=== PATIENT | male | born 1955 | race Caucasian/White ===

== ENCOUNTER 2020-03-18 22:27 | Emergency (ER) | payer MEDICAID, MEDICARE ==
[2020-03-19] MEDS ORDERED: Acetaminophen 325 MG Tab PO ONE (02:47)
--- NOTE | 2020-03-19 02:51 | EDM.PDOC ---
ED HPI GENERAL MEDICAL PROBLEM - General Chief Complaint: Lower Extremity Injury/Pain Stated Complaint: FOOT INJURY Time Seen by Provider: 03/19/20 02:25 Source of Information: Reports: Patient History Limitations: Reports: No Limitations - History of Present Illness INITIAL COMMENTS - FREE TEXT/NARRATIVE: Mr. Smith is a 65-year-old gentleman who now presents to the ED after injuring his left ankle. He states that he rolled his left foot inward around 15:00 yesterday, when getting off of a horse. He states that he fell down as a result, but was not otherwise injured. He states that he took some oxycodone, which initially helped, however, but as time went on, pain in his ankle increased. Here in the ED, the patient's initial BP is found to be modestly elevated at 15 5/87, otherwise, he is hemodynamically stable, afebrile, saturating 98% on room air. Other than his left ankle injury, the patient denies having a recent fever, chills, sore throat, ear pain, nasal or sinus congestion, cough, dyspnea, chest pain, palpitations, nausea, vomiting, constipation, diarrhea, abdominal pain, urinary symptoms, recent weight gain or weight loss, recent bloody bowel movemen ts or black bowel movements, recent joint aches, headaches, or rashes. The patient is visiting this area from [place], [place]. Left Ankle Pain Score (Numeric/FACES): 3 - Related Data Allergies Allergy/AdvReac Type Severity Reaction Status Date / Time No Known Allergies Allergy Verified 03/18/20 22:38 Past Medical History Cardiovascular History: Reports: Afib (paroxysmal), CAD, Hypertension Gastrointestinal History: Reports: GERD Genitourinary History: Reports: BPH Musculoskeletal History: Reports: Fracture (left leg, spine in 3 places, 7 ribs), Osteoarthritis Neurological History: Reports: Brain Injury Psychiatric History: Reports: Anxiety, Depression - Past Surgical History Cardiovascular Surgical History: Reports: Coronary Artery Stent (x 2), Other (See Below) (Coronary angiogram x 2) Musculoskeletal Surgical History: Reports: Knee Replacement (bilateral), ORIF (left tib/fib) Social & Family History - Tobacco Use Smoking Status *Q: Former Smoker Years of Tobacco use: 13 Packs/Tins Daily: 1 Month/Year Tobacco Last Used: Quit 1979 Second Hand Smoke Exposure: No - Caffeine Use Caffeine Use: Reports: Coffee - Alcohol Use Alcohol Use History: Yes Alcohol Use Frequency: Rarely - Recreational Drug Use Recreational Drug Use: No - Living Situation & Occupation Living situation: Reports: , Alone Occupation: Retired Review of Systems - Review of Systems Review Of Systems: Comprehensive ROS is negative, except as noted in HPI. ED EXAM, GENERAL - Physical Exam Exam: See Below Exam Limited By: No Limitations General Appearance: Alert, WD/WN, No Apparent Distress Extremities: Other (No visible abnormality to the left ankle or foot, such as swelling, erythema, ecchymosis, or abrasion, and the foot is not unusually angled or displaced. There is tenderness to palpation around the lateral malleolus, but no significant tenderness to the medial malleolus, or anterior or posterior syndesmosis. No tenderness to palpation of the foot itself. There is a well-healed scar noted over the mid tibia. Neurovascular status of the left lower extremity is intact.) Course - Vital Signs Last Recorded V/S: Last Vital Signs Temp 36.2 C 03/18/20 22:35 Pulse 83 03/18/20 22:35 Resp 18 03/18/20 22:35 BP 155/87 H 03/18/20 22:35 Pulse Ox 98 03/18/20 22:35 - Orders/Labs/Meds Orders: Active Orders 24 hr Category Date Time Status Ankle Min 3V Lt [CR] Stat Exams 03/18/20 22:32 Taken Foot Comp Min 3V Lt [CR] Stat Exams 03/18/20 22:32 Taken DME for Discharge [COMM] Stat Oth 03/19/20 02:47 Ordered Meds: Medications Discontinued Medications Generic Name Dose Route Start Last Admin Trade Name Rei PRN Reason Stop Dose Admin Acetaminophen 650 mg 03/19/20 02:47 Tylenol PO 03/19/20 02:48 NOW ONE - Re-Assessments/Exams Free Text/Narrative Re-Assessment/Exam: 03/19/20 02:45 As above, the patient rolled his left foot inward around 15:00 yesterday af ternoon, suffering a lateral left ankle injury. On exam, he has minimal swelling, but some tenderness to the lateral aspect of his ankle. The ankle itself is stable. 4-view radiographs of the left ankle appear to demonstrate significant osteopenia. There is a well-healed mid-tibial fracture and a well-healed distal fibular fracture, but no acute fracture or dislocation seen. Degenerative join t disease noted at the ankle. Formal read per the Radiologist pending. 4-view radiographs of the left foot again appear to demonstrate significant osteopenia. No fractures or dislocations identified. Degenerative joint disease of the foot, and an unusually high arch noted. Formal read per the Radiologist pending. The patient appears to have a relatively mild left ankle sprain. I would like him to ice and elevate his left ankle as much as possible over the next 2 or 3 days, to help minimize swelling. Because he is on Coumadin, I am advising that he not take ibuprofen, and have therefore recommended that he take Tylenol as needed for discomfort. He will be fitted with a stirrup splint, which I would like him to apply each morning and remove at bedtime for the next week. After that, he should begin ambulating on his own, with some expected discomfort, however, if he continues to have significant discomfort after 2 weeks, he should follow-up with his Orthopedic Surgeon. The patient expressed understanding. Departure - Departure Time of Disposition: 02:51 Disposition: Home, Self-Care 01 Condition: Good Clinical Impression: Left ankle sprain - Discharge Information *PRESCRIPTION DRUG MONITORING PROGRAM REVIEWED*: Not Applicable *COPY OF PRESCRIPTION DRUG MONITORING REPORT IN PATIENT VIVIANA: Not Applicable Instructions: Ankle Sprain Referrals: PCP,Not In Area [Primary Care Provider] - Forms: ED Department Discharge Additional Instructions: You were seen in the emergency room after rolling your left foot inward, injuring your left ankle. Work-up in the ER included x-rays of your ankle and foot, which demonstrate old healed mid tibia fracture and distal fibula fracture, along with generally thin bones and arthritis, however, no new fractures or dislocations were seen. Based on your history, physical exam, and ER x-rays, you have most likely sprained your left ankle. We recommend that you ice and elevate your left ankle as much as possible over the next 2 to 3 days, to help minimize swelling. We recommend that you take [id number] Tylenol as needed for discomfort. Because you are on Coumadin, we advise against you are taking ibuprofen (Advil, Motrin) or naproxen (Aleve). You have been fitted with a stirrup splint. Apply this each morning and remove at bedtime. After 1 week, you should remove the splint and begin ambulating without it. You should expect to still have some discomfort at that time, however, if you are still having significant discomfort after 2 weeks, we recommend that you follow-up with your Orthopedic Surgeon for reevaluation. If any other problems, please do not hesitate to return to the ER. Sepsis Event Note (ED) - Evaluation Sepsis Screening Result: No Definite Risk - Focused Exam Vital Signs: Vital Signs Temp Pulse Resp BP Pulse Ox 03/18/20 22:35 36.2 C 83 18 155/87 H 98 - My Orders Last 24 Hours: My Active Orders 03/18/20 22:32 Ankle Min 3V Lt [CR] Stat Foot Comp Min 3V Lt [CR] Stat 03/19/20 02:47 DME for Discharge [COMM] Stat - Assessment/Plan Last 24 Hours: My Active Orders 03/18/20 22:32 Ankle Min 3V Lt [CR] Stat Foot Comp Min 3V Lt [CR] Stat 03/19/20 02:47 DME for Discharge [COMM] Stat
--- NOTE | 2020-03-19 06:22 | CR ---
Left ankle: 4 views of the left ankle were obtained. Comparison: No previous studies available. Old healed fractures are noted at the junction of the distal and mid one third diaphysis of the tibia and fibula. Additional healed fracture within the more distal fibular diaphysis is seen. Osteopenia is noted. Tibiotalar joint shows narrowing along the lateral side. No acute fracture, dislocation or other bony abnormality is appreciated. Impression: 1. Mild degenerative change within the tibiotalar joint. 2. Old healed fractures. 3. Osteopenia. 4. Nothing acute is identified. Diagnostic code #2 Study was dictated in [facility]
--- NOTE | 2020-03-19 06:22 | CR ---
Left foot: 4 views left foot were obtained. Comparison: No prior foot exam. Bony structures are osteoporotic. Mild degenerative change is noted within the midfoot. Bony density is noted off the distal calcaneus compatible with old injury. No definite acute fracture is appreciated. Impression: 1. Osteopenia and degenerative change. 2. No definite acute abnormality is appreciated. Diagnostic code #2 Study was dictated in MDT
== END 2020-03-19 03:10 | disposition home or self-care (01) ==
LOC: JD.ED 22:27
DX: S93.402A Sprain of unspecified ligament of left ankle, initial encounter (principal); I10 Essential (primary) hypertension; I25.10 Atherosclerotic heart disease of native coronary artery without angina pectoris; I48.0 Paroxysmal atrial fibrillation; Z87.891 Personal history of nicotine dependence; X50.1XXA Overexertion from prolonged static or awkward postures, initial encounter
CPT/HCPCS: 73610-26-LT; 73610-LT; 73630-26-LT; 73630-LT; 99282; 99283-25